=== PATIENT | male | born 1995 | race Two or more races ===

== ENCOUNTER 2018-08-09 10:53 | Outpatient (CLI) | payer OTHER | END 2018-08-09 11:07 | disposition home or self-care (01) | LOC: LAB 10:53 | DX: K40.90 Unilateral inguinal hernia, without obstruction or gangrene, not specified as recurrent (principal); Z01.811 Encounter for preprocedural respiratory examination; Z01.812 Encounter for preprocedural laboratory examination ==

== ENCOUNTER 2018-08-22 05:28 | Day surgery (SDC) | payer OTHER | END 2018-08-22 13:10 | disposition home or self-care (01) | LOC: CIR.AMB 05:28 | DX: K40.90 Unilateral inguinal hernia, without obstruction or gangrene, not specified as recurrent (principal) ==